=== PATIENT | male | born 1975 | race Caucasian/White ===

== ENCOUNTER 2020-04-27 11:19 | Emergency (ER) | payer BC ==
[2020-04-27 11:25] VITALS: BMI 39.5
[2020-04-27] MEDS ORDERED: BAMLANIVIMAB 700 MG in SODIUM CHLORIDE 250 ML IVPB ONE (11:38)
[2020-04-27 12:38] VITALS: BP 120/76; PULSE 78; TEMP 98
[2020-04-27 13:07] LABS: HEMATOCRIT 46.9 % (35.4-49); MCH 29.4 pg (25.7-33.7); MCHC 34.2 g/dl (32.0-35.9); MEAN CELL VOLUME 86.2 fl (80-96); PLATELET COUNT 190 K/MM3 (134-434); RBC 5.44 M/mm3 (4.00-5.60); RDW 14.5 % (11.9-15.9); WHITE BLOOD COUNT 5.3 K/mm3 (4.0-10.0)
[2020-04-27 13:31] LABS: POTASSIUM 4.4 mmol/L (3.5-5.1)
[2020-04-27 13:35] LABS: BLOOD UREA NITROGEN 13.3 mg/dL (7-18); CALCIUM 9.1 mg/dL (8.5-10.1)
[2020-04-27 13:39] LABS: CREATININE 0.9 mg/dL (0.55-1.3)
== END 2020-04-27 15:07 | disposition home or self-care (01) ==
LOC: JCOVINFU 11:19 → JER 11:19 → JCOVINFU 15:07
DX: U07.1 COVID-19 (principal)
CPT/HCPCS: 36415; 71046-TC-FY; 80048; 85027; 99284-25; M0239; Q0239